=== PATIENT | male | born 1990 | race Two or more races ===

== ENCOUNTER 2024-02-08 09:24 | Outpatient (AMB) | payer OTHER, SELFPAY ==
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
[2024-02-08 09:33] VITALS: BP 174/106; PULSE 106; O2SAT 98; BMI 44.5
[2024-02-08 10:41] VITALS: BP 148/72
== END 2024-02-08 10:14 | disposition home or self-care (01) ==
PROVIDERS: PCP Family Medicine; Visit Provider Nurse Practitioner Family
DX: M51.36 Other intervertebral disc degeneration, lumbar region (principal); M47.817 Spondylosis without myelopathy or radiculopathy, lumbosacral region; M62.830 Muscle spasm of back; M54.16 Radiculopathy, lumbar region; M53.3 Sacrococcygeal disorders, not elsewhere classified; Z79.891 Long term (current) use of opiate analgesic; M54.50 Low back pain, unspecified; G89.29 Other chronic pain
CPT/HCPCS: 99204

== ENCOUNTER → 2024-02-08 09:24 | Outpatient (BNVA) | payer OTHER, SELFPAY | PROVIDERS: PCP Family Medicine; Visit Provider Nurse Practitioner Family | DX: M51.36 Other intervertebral disc degeneration, lumbar region (principal); M47.817 Spondylosis without myelopathy or radiculopathy, lumbosacral region; M62.830 Muscle spasm of back; M54.16 Radiculopathy, lumbar region; M53.3 Sacrococcygeal disorders, not elsewhere classified; M54.50 Low back pain, unspecified; G89.29 Other chronic pain; F11.20 Opioid dependence, uncomplicated | CPT/HCPCS: 99202 ==

== ENCOUNTER 2024-02-25 13:44 | Outpatient (AMB) | payer OTHER, SELFPAY ==
--- NOTE | 2024-02-25 14:01 | HO.SPINEOV ---
Intake Visit Reasons: second opinion Intake Note: Mr. James is here for a second opinion/ Low back pain that Radiates down the right leg. Cataloging Assistant Required: No Allergies pregabalin Adverse Reaction (Intermediate, Verified 02/25/24 14:02) suicidal thoughts Assessment & Plan Assessment & Plan (1) Chronic lower back pain: Code(s): M54.50 - Low back pain, unspecified; G89.29 - Other chronic pain Category: Medical Qualifiers: Back pain laterality: midline Sciatica presence: without sciatica Qualified Code(s): M54.50 - Low back pain, unspecified; G89.29 - Other chronic pain Plan Dear colleague Thank you for referring Shade James for 2nd opinion to the office today with a chief complaint of chronic back pain. HPI: This 33-year-old male developed acute back pain when he was 25. That episode lasted for more than 12 months and finally he returned to a level where was able to function. He was having 3 jobs. Pain returned in September 2022 without a specific cause. The pain is in the low back radiates to the left and right side. On the right sided radiates to the inside of his right thigh and kneecap. The pain is stabbing and stinging is associated with numbness. He had tried multiple injections, physical therapy and chiropractic therapy. The injections are no longer working. Uses street drugs 1 time a week to get sleep. He smokes half a pack a day PMH: None Medications: Nortriptyline, Cymbalta Allergies: None Social history: Single. Lives by himself. Currently unemployed Physical Exam: Pleasant male in obvious agony. Pain is located in the mid lumbar spine. No neurological deficits for motor sensation or reflexes Radiological Studies: MRI done at [facility] shows mild degenerative changes at L3-4 L4-5 and L5-S1 without central canal stenosis or nerve root compression. Impression/Plan: This patient is suffering from chronic low back pain. The intensity of the pain is not in agreement with the MRI findings. I can not offer him any surgery for his back pain. Thank you for allowing me to participate in your patients care. total time spent was 30 minutes in counseling ,coordination of plan, personal review of imaging, and subsequent plan Brayan Fitch MD, PhD Spine Fellowship Trained Neurosurgeon Director, [facility] Coding Level of Care Code Est Pt Level 3 (84915) Diagnoses Chronic midline low back pain without sciatica M54.50; G89.29 Back pain laterality: midline Sciatica presence: without sciatica
== END 2024-02-25 15:13 | disposition home or self-care (01) ==
PROVIDERS: PCP Family Medicine; Referring Provider Nurse Practitioner Family; Visit Provider Neurological Surgery
DX: M54.50 Low back pain, unspecified (principal); G89.29 Other chronic pain
CPT/HCPCS: 99213

== ENCOUNTER → 2024-02-25 13:44 | Outpatient (BNVA) | payer OTHER, SELFPAY | PROVIDERS: PCP Family Medicine; Visit Provider Neurological Surgery | DX: M54.50 Low back pain, unspecified (principal); G89.29 Other chronic pain | CPT/HCPCS: 99212 ==

== ENCOUNTER 2024-03-02 10:41 | Outpatient (AMB) | payer OTHER, SELFPAY ==
[2024-03-02 11:01] VITALS: BP 179/90; PULSE 85; O2SAT 98; BMI 43.0
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
== END 2024-03-02 11:32 | disposition home or self-care (01) ==
PROVIDERS: PCP Family Medicine; Visit Provider Nurse Practitioner Family
DX: M54.16 Radiculopathy, lumbar region (principal); M25.551 Pain in right hip; M25.552 Pain in left hip; Z79.891 Long term (current) use of opiate analgesic; M53.3 Sacrococcygeal disorders, not elsewhere classified; M62.830 Muscle spasm of back; M47.817 Spondylosis without myelopathy or radiculopathy, lumbosacral region
CPT/HCPCS: 99214

== ENCOUNTER → 2024-03-02 10:41 | Outpatient (BNVA) | payer OTHER, SELFPAY | PROVIDERS: PCP Family Medicine; Visit Provider Nurse Practitioner Family | DX: M54.16 Radiculopathy, lumbar region (principal); M62.830 Muscle spasm of back; M25.551 Pain in right hip; M25.552 Pain in left hip; M53.3 Sacrococcygeal disorders, not elsewhere classified; M47.817 Spondylosis without myelopathy or radiculopathy, lumbosacral region; F11.20 Opioid dependence, uncomplicated | CPT/HCPCS: 99212 ==

== ENCOUNTER 2025-01-01 09:58 | Emergency (ER) | payer OTHER, SELFPAY ==
[2025-01-01 10:57] VITALS: BP 145/80; PULSE 82; RESP 16; TEMP 36.6; O2SAT 99; BMI 39.8
--- NOTE | 2025-01-01 12:55 | ED.MALEGU ---
HPI - Male Genitourinary General Chief complaint: Urogenital-Male Stated complaint: std check Time Seen by Provider: 01/01/25 12:53 Source: patient Limitations: no limitations History of Present Illness ED Provider: Kasia Mart PA-C HPI Narrative: 34-year-old male presents requesting testing for gonorrhea chlamydia. Patient states his significant other tested positive for chlamydia. Denies penile discharge, testicular pain or swelling, dysuria. Related Data Home Medications ?Medication ?Instructions ?Recorded ?Confirmed cyanocobalamin (vitamin B-12) 1,000 mcg PO DAILY 02/08/24 03/02/24 1,000 mcg capsule melatonin 5 mg capsule mg PO 02/08/24 03/02/24 naloxone 4 mg/actuation nasal 4 mg intranasal Q2M PRN 02/08/24 03/02/24 spray (Narcan) nortriptyline 25 mg capsule 25 mg PO TID 02/08/24 03/02/24 tizanidine 4 mg tablet 4 mg PO Q8H PRN 03/02/24 03/02/24 Previous Rx's ?Medication ?Instructions ?Recorded lidocaine 5 % topical patch 1 patch topical DAILY pain #30 ea 02/08/24 Allergies Allergy/AdvReac Type Severity Reaction Status Date / Time pregabalin AdvReac Intermediate suicidal Verified 01/01/25 10:57 thoughts Review of Systems Review of Systems: Yes all other systems are reviewed and are negative Constitutional: Constitutional: Denies fatigue and Denies fever(s) ENT: Denies sore throat Cardiovascular: Cardiovascular: Denies chest pain and Denies dyspnea Respiratory: Respiratory: Denies dyspnea Gastrointestinal: Gastrointestinal: Denies abdominal pain Genitourinary: Genitourinary: Denies genital lesions, Denies genital pain, Denies dysuria, Denies penile discharge, Denies scrotal swelling and Denies testicular pain Endocrine: Endocrine: Denies fatigue PMFSH Past Medical History Attestation statement: The following information was validated with the patient. Medical History Anxiety Chronic lower back pain Opioid use disorder Social History Social History Alcohol intake: never Patient Tobacco Use Status: Former Tobacco user Tobacco use type: Cigarette Cigarettes Per Day: 3 Substance Use Type: Heroin, Marijuana, Opiates and Caffiene Do you have a plan to hurt others: No Plan Physical Exam Vital Signs: Vital Signs: Last Vital Signs Temp 98 F 01/01/25 10:57 Pulse 82 01/01/25 10:57 Resp 16 01/01/25 10:57 BP 145/80 H 01/01/25 10:57 Pulse Ox 99 01/01/25 10:57 O2 Del Method Room Air 01/01/25 10:57 BMI result Body Mass Index 39.8 Const: Other: Alert Orientation/consciousness: patient oriented x3 Resp: Effort & Inspection: normal respiratory effort Cardio: Other: Normal peripheral perfusion Skin: Other: Warm dry no rash Neuro: General: patient oriented x3, gait normal, no focal motor deficits and CN's II-XI intact bilaterally Psych: Other: Cooperative Medical Decision Making Medical Decision Making MDM Narrative: 34-year-old male presents requesting testing for gonorrhea chlamydia. Patient states his significant other tested positive for chlamydia. Denies penile discharge, testicular pain or swelling, dysuria. No chronic issues History: Per patient I have considered the following differential diagnoses: Urethritis, epididymitis, orchitis Plan: We will screen the patient for gonorrhea chlamydia, I will call him with results. Discharge Plan Discharge Clinical Impression: Exposure to chlamydia Patient Disposition: Home, Self-Care Additional Instructions: I will call you tomorrow with the results. If you require treatment, I will send antibiotics your pharmacy at that time. Prescriptions: No Action tizanidine 4 mg tablet 4 mg PO Q8H PRN naloxone [Narcan] 4 mg/actuation spray,non-aerosol 4 mg intranasal Q2M PRN Rx Instructions: spray 1 dose into ONE nostril; alternate nostrils w each dose until help arrives cyanocobalamin (vitamin B-12) 1,000 mcg capsule 1,000 mcg PO DAILY melatonin 5 mg capsule PO nortriptyline 25 mg capsule 25 mg PO TID lidocaine 5 % adhesive patch,medicated 1 patch topical DAILY Qty: 30 1RF Print Language: Slovenian
[2025-01-01 13:06] VITALS: BP 145/80; PULSE 82; RESP 16; TEMP 36.6; O2SAT 99
[2025-01-01 14:45] LABS: CT PCR NOT DETECTED (Not Detect.); NG PCR NOT DETECTED (Not Detect.)
== END 2025-01-01 13:07 | disposition home or self-care (01) ==
PROVIDERS: Physician Assistant Medical; Emergency Provider Emergency Medicine Emergency Medical Services; PCP Internal Medicine
DX: Z20.2 Contact with and (suspected) exposure to infections with a predominantly sexual mode of transmission (principal); Z79.899 Other long term (current) drug therapy; Z87.891 Personal history of nicotine dependence
CPT/HCPCS: 87491; 87591; 99281; 99282; 99283

== ENCOUNTER 2025-02-01 19:21 | Emergency (ER) | payer OTHER, SELFPAY ==
[2025-02-01 19:26] VITALS: BP 138/84; PULSE 56; O2SAT 98
[2025-02-01 19:33] VITALS: BP 153/96; PULSE 59; RESP 16; TEMP 37.2; O2SAT 100; BMI 40.2
--- OUTSIDE RECORDS SUMMARY | 2025-02-01 19:41 | XMS_ITS | Clinical Summary ---
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 Name Role Phone Unavailable Primary Care Provider Unavailabl e Surgical History Surgery Date Site/Laterality Comments OTHER SURGICAL HISTORY PROCEDURE: DENIES PREVIOUS SURGERY Medical History Medical History Date Comments Obesity DX:Obesity Family History Medical History Relation Name Comments Other: neg Other 1 Relation Name Status Comments Other 1 Other 2 Social History Tobacco Use Types Packs/Day Years Used Date Smoking Tobacco: Never Smokeless Tobacco: Never Alcohol Use Standard Drinks/Week Comments No 0 (1 standard drink = 0.6 oz pur e alcohol) Sex and Gender Information Value Date Recorded Sex Assigned at Not on file Legal Sex Male 2:15 AM EST Gender Identity Not on file Sexual Orientation Not on file Obstetrics History Plan of Treatment Health Maintenance Due Date Last Done Comments DTaP,Tdap,and Td Vaccines (1 - Tdap) 2010 Hepatitis B Vaccines (1 of 3 - 19+ 3-dose series) 2010 COVID-19 Vaccine (2023-2 5 season) 2024 Depression Screening 08/05/2024 HIV Screening 08/05/2024 Hepatitis C Screening 08/05/2024 Social Influencers of Health Screening 08/05/2024 Influenza Vaccine (Season Ended) 2025 HIB Vaccines Aged Out No longer eligi ble based on patient's age to complete this topic HPV Vaccines Aged Out No longer eligi ble based on patient's age to complete this topic Hepatitis A Vaccines Aged Out No long er eligible based on patient's age to complete this topic IPV Vaccines Aged Out No longer eligi ble based on patient's age to complete this topic MMR Vaccines Aged Out No longer eligi ble based on patient's age to complete this topic Meningococcal ACWY Vaccine Aged Out N o longer eligible based on patient's age to complete this topic Meningococcal B Vaccine Aged Out No l onger eligible based on patient's age to complete this topic Pneumococcal Vaccine: Pediat rics (0 to 5 Years) and At-Risk Patients (6 to 64 Years) Aged Out No longer eligible b ased on patient's age to complete this topic RSV Immunization Patients Un parvez 20 months Aged Out No longer eligible b ased on patient's age to complete this topic Varicella Vaccines Aged Out No longer eligible based on patient's age to complete this topic
--- NOTE | 2025-02-01 20:59 | ED.GENADULT ---
HPI - General Adult General Chief complaint: ETOH/Substance Use Stated complaint: od 3bags of heroin/narcan given Time Seen by Provider: 02/01/25 19:37 Source: patient History of Present Illness ED Provider: Dimitri [facility] narrative: 34-year-old male presenting as heroin overdose Narcan revival. Patient reports snorting 2 bags of heroin. Patient subsequently became unconscious. EMS was called by bystander and patient was given 12 mg of Narcan. Patient currently has no complaints. He denies SI/HI. He is repeatedly stating that he does not want to stay in the emergency department. He has no physical complaints. Related Data Home Medications ?Medication ?Instructions ?Recorded ?Confirmed cyanocobalamin (vitamin B-12) 1,000 mcg PO DAILY 02/08/24 03/02/24 1,000 mcg capsule melatonin 5 mg capsule mg PO 02/08/24 03/02/24 naloxone 4 mg/actuation nasal 4 mg intranasal Q2M PRN 02/08/24 03/02/24 spray (Narcan) nortriptyline 25 mg capsule 25 mg PO TID 02/08/24 03/02/24 tizanidine 4 mg tablet 4 mg PO Q8H PRN 03/02/24 03/02/24 Previous Rx's ?Medication ?Instructions ?Recorded lidocaine 5 % topical patch 1 patch topical DAILY pain #30 ea 02/08/24 Allergies Allergy/AdvReac Type Severity Reaction Status Date / Time pregabalin AdvReac Intermediate suicidal Verified 02/01/25 19:35 thoughts Review of Systems Review of Systems: Yes all other systems are reviewed and are negative PMFSH Past Medical History Medical History Anxiety Chronic lower back pain Opioid use disorder Social History Social History Alcohol intake: never Patient Tobacco Use Status: Former Tobacco user Tobacco use type: Cigarette Cigarettes Per Day: 3 Substance Use Type: Heroin, Marijuana, Opiates and Caffiene Advance Directives: No Advance Directives Information Provided: No Physical Exam ED Vital Signs: Vital Signs - 24 hr 02/01/25 19:33 Temperature 98.9 F Pulse Rate 59 Respiratory Rate 16 Blood Pressure 153/96 H Pulse Oximetry 100 Oxygen Delivery Method Room Air BMI result Body Mass Index 40.2 Well-appearing male in no acute distress Head normocephalic and atraumatic Normal speech and cognition Lungs clear to auscultation bilaterally with unlabored breathing Abdomen is soft nontender nondistended Normal S1-S2 regular rate and rhythm Medications Administered Discontinued Medications Generic Name Dose Route Start Last Admin Trade Name Patrick PRN Reason Stop Dose Admin Naloxone HCl 8 mg 02/01/25 21:05 02/01/25 21:28 Naloxone Hcl Nasal Take Home 4 Mg [place] NOSTRILALT 02/01/25 21:06 Not Given ONCE ONE Medical Decision Making Medical Decision Making MDM Narrative: 34-year-old male presenting as drug overdose Narcan revival - this is likely straight forward drug overdose. Possibly co-ingestion. I have no concerns for trauma or other life-threatening pathology - patient was given Narcan transport - he will require 4 hour observation Pt signed out to night attending Discharge Plan Discharge Clinical Impression: Accidental drug overdose Patient Disposition: Home, Self-Care Instructions: Opioid Use Disorder (ED) Additional Instructions: POpiate use disorder You were seen in our Emergency Department today for treatment of opiate use disorder. You may have been dosed with medication for opiate use disorder (MOUD) in the form of suboxone or methadone. You may experience feeling some withdrawal symptoms and this is normal. The? dose in the Emergency Department is a starting dose and meant to be titrated up once you follow up with a clinic. Please do not feel discouraged, it is a process. The nurse has reviewed with you where to follow up and what information to bring with you, to continue treatment. You also may have been given naloxone (narcan) to take home with you. This medication is used to potentially treat opiate overdose. If you decide you want to stop or cut down on how much you?re using, you can call or walk into our outpatient Addiction Treatment office: [facility] (M-F 9am-5p) [address], [phone] You may have been provided with safer injection?items, please take time to take care of YOU and your health. Use new supplies whenever possible to lessen the chances of infections and other illnesses.? ?If you need more supplies, please go [facility],? [address] [place] [address] OR you can call or text to coordinate delivery of safer supplies. You were also provided a list of several treatment providers in the area.? If you experience any worsening symptoms you cannot control please return to the ED or call 911. Please follow up at your next appointment. Things to look out for are fevers, chest pain, shortness of breath, severe pain, dizziness, fainting or any other concerns. lease refrain from recreational drug use Please follow up with your primary care provider in the next 24-48 hours for reassessment Please use the provided Narcan in cases of emergency Prescriptions: No Action tizanidine 4 mg tablet 4 mg PO Q8H PRN naloxone [Narcan] 4 mg/actuation spray,non-aerosol 4 mg intranasal Q2M PRN Rx Instructions: spray 1 dose into ONE nostril; alternate nostrils w each dose until help arrives cyanocobalamin (vitamin B-12) 1,000 mcg capsule 1,000 mcg PO DAILY melatonin 5 mg capsule PO nortriptyline 25 mg capsule 25 mg PO TID lidocaine 5 % adhesive patch,medicated 1 patch topical DAILY Qty: 30 1RF Interventions: ED Discharge Assessment Last Done: 02/01/25 21:30 Discharge Date/Time: 02/01/25 21:30 Print Language: Citizen [place]
[2025-02-01 21:27] VITALS: BP 151/102; PULSE 59; RESP 16; TEMP 36.4; O2SAT 98
[2025-02-01 21:30] VITALS: BP 151/102; PULSE 59; RESP 16; TEMP 36.4; O2SAT 98
== END 2025-02-01 21:30 | disposition home or self-care (01) ==
PROVIDERS: Emergency Provider Student in an Organized Health Care Education/Training Program; PCP Internal Medicine
DX: T40.1X1A Poisoning by heroin, accidental (unintentional), initial encounter (principal); R40.2A Nontraumatic coma due to underlying condition; Y92.9 Unspecified place or not applicable
CPT/HCPCS: 99283; 99284

== ENCOUNTER → 2025-04-02 22:37 | Outpatient (BNV) | payer OTHER, SELFPAY | PROVIDERS: PCP Internal Medicine; Visit Provider Radiology Diagnostic Radiology | DX: R05.9 Cough, unspecified (principal) | CPT/HCPCS: 71046 ==

== ENCOUNTER 2025-04-02 23:00 | Emergency (ER) | payer OTHER, SELFPAY ==
--- NOTE | ~2025-04-02 | XR_ITS ---
CLINICAL HISTORY: prod cough 2 view chest x-ray. Comparison: None Findings: No consolidation, pneumothorax, or effusion. Heart size normal. Impression: 1. No acute cardiopulmonary process. No focal pulmonary consolidation. This document has been electronically signed by: Shade Leon MD on 04/03/2025 00:31:39
[2025-04-02 23:07] VITALS: BP 125/81; PULSE 99; RESP 18; TEMP 37.2; O2SAT 95; BMI 38.7
[2025-04-03 00:17] LABS: Influenza A PCR NEGATIVE (Negative); Influenza B PCR NEGATIVE (Negative); Resp Syncy Virus RNA Qual PCR NEGATIVE (Negative); SARS COV2 PCR INHOUSE NEGATIVE (Negative)
[2025-04-03 00:28] LABS: IDNOW Serial# 16C4AD1C; Strep A Nucleic Acid Negative (Negative)
--- NOTE | 2025-04-03 01:56 | ED.GENADULT ---
HPI - General Adult General Chief complaint: Dental/Oral Stated complaint: sinus congestion 6 days/ sores on upper lip Time Seen by Provider: 04/03/25 01:31 Source: patient, RN notes reviewed and old records reviewed Mode of arrival: ambulatory Limitations: no limitations History of Present Illness ED Provider: Jacqueline HPI narrative: 35-year-old male presents for evaluation of lesions on his mouth. Patient reports he is being treated with Augmentin for a sinus infection which she has been taking for 3 days he has had sinus congestion for about 1 week. He states this morning he woke up with sores on his upper lip and top of his mouth. He states that he has never had these sores in the past. He reports that he has not had any new sexual partners or any sexual interaction about 6 months denies any history of herpes he describes the ulcers as burning pain Related Data Home Medications ?Medication ?Instructions ?Recorded ?Confirmed cyanocobalamin (vitamin B-12) 1,000 mcg PO DAILY 02/08/24 03/02/24 1,000 mcg capsule melatonin 5 mg capsule mg PO 02/08/24 03/02/24 naloxone 4 mg/actuation nasal 4 mg intranasal Q2M PRN 02/08/24 03/02/24 spray (Narcan) nortriptyline 25 mg capsule 25 mg PO TID 02/08/24 03/02/24 tizanidine 4 mg tablet 4 mg PO Q8H PRN 03/02/24 03/02/24 Previous Rx's ?Medication ?Instructions ?Recorded lidocaine 5 % topical patch 1 patch topical DAILY pain #30 ea 02/08/24 Allergies Allergy/AdvReac Type Severity Reaction Status Date / Time pregabalin AdvReac Intermediate suicidal Verified 04/02/25 23:11 thoughts Review of Systems Constitutional: Constitutional: Denies body ache(s), Denies chills and Denies fever(s) ENT: Reports sinus pressure and Denies sore throat Comments: sores on mouth Cardiovascular: Cardiovascular: Denies chest pain and Denies dyspnea on exertion Respiratory: Respiratory: Denies cough and Denies dyspnea on exertion Gastrointestinal: Gastrointestinal: Denies abdominal pain PMFSH Past Medical History Medical History Anxiety Chronic lower back pain Opioid use disorder Social History Social History Alcohol intake: never Patient Tobacco Use Status: Former Tobacco user Tobacco use type: Cigarette Cigarettes Per Day: 3 Substance Use Type: Heroin, Marijuana, Opiates and Caffiene Advance Directives: No Advance Directives Information Provided: Yes Physical Exam ED Vital Signs: Vital Signs - 24 hr 04/02/25 23:07 Temperature 99.0 F Pulse Rate 99 Respiratory Rate 18 Blood Pressure 125/81 Pulse Oximetry 95 Oxygen Delivery Method Room Air BMI result Body Mass Index 38.7 Const General: healthy appearing, comfortable, no acute distress, alert and awake Nutritional Appearance: well nourished Orientation/consciousness: patient oriented x3 HENMT Other: 3 separate whitish ulcers on the upper inner lip in a cluster. Similar appearing lesion on the soft pallate. Head: Yes normocephalic and Yes atraumatic Eyes Eyelids: Yes eyelids normal Conjunctivae: conjunctivae normal Sclerae: sclerae normal Corneas: corneas normal Pupils: Equal, round and reactive pupils present EOM: EOMs intact bilaterally Neck Neck: Yes full ROM Resp Effort & Inspection: normal respiratory effort, able to speak in complete sentences and not labored Skin General skin exam: elasticity normal Neuro General: patient oriented x3 Cranial nerves: Yes Equal, round and reactive pupils present and Yes Bilaterally intact EOM present Cognition (Neuro): normal cognition Extrem Other: Moving all extremities well without any obvious deformities Medical Decision Making Medical Decision Making MDM Narrative: patient's lesions are consistent with aphthous ulcer. given the ulceration appearance we will swab the area for herpes but I feel this is less likely. The patient denies any previous outbreak and has not had any sexual interaction in 6 months. Differential Diagnosis Differential Diagnoses: The differential diagnosis associated with the presentation includes Canker sore Aphthous ulcer Herpes simplex 2 Herpes simplex 1 Lab Data Labs: Lab Results 04/02/25 Range/Units 23:34 Influenza Type A (PCR) NEGATIVE (Negative) Influenza Type B (PCR) NEGATIVE (Negative) RSV RNA Qual (PCR) NEGATIVE (Negative) SARS-CoV-2 RNA (RT-PCR) NEGATIVE (Negative) S. pyogenes GrpA MARGARITA Negative (Negative) Discharge Plan Discharge Clinical Impression: Aphthous ulcer Patient Disposition: Home, Self-Care Instructions: Oral Mucositis (ED) Additional Instructions: your symptoms are most consistent with a canker sore or aphthous ulcer you may use [id number] Orajel or benzocaine to help numb the pain we will call you if the herpes swab results positive to receive appropriate treatment Prescriptions: No Action tizanidine 4 mg tablet 4 mg PO Q8H PRN naloxone [Narcan] 4 mg/actuation spray,non-aerosol 4 mg intranasal Q2M PRN Rx Instructions: spray 1 dose into ONE nostril; alternate nostrils w each dose until help arrives cyanocobalamin (vitamin B-12) 1,000 mcg capsule 1,000 mcg PO DAILY melatonin 5 mg capsule PO nortriptyline 25 mg capsule 25 mg PO TID lidocaine 5 % adhesive patch,medicated 1 patch topical DAILY Qty: 30 1RF Print Language: Azeri
[2025-04-03 02:24] VITALS: BP 124/85; PULSE 88; RESP 18; TEMP 36.6; O2SAT 97
== END 2025-04-03 02:25 | disposition home or self-care (01) ==
PROVIDERS: Physician Assistant; Emergency Provider Emergency Medicine; PCP Internal Medicine
DX: B00.1 Herpesviral vesicular dermatitis (principal); Z03.818 Encounter for observation for suspected exposure to other biological agents ruled out; Z87.891 Personal history of nicotine dependence
CPT/HCPCS: 0241U; 71046; 87255; 87651; 99283; 99284